=== PATIENT | male | born 1950 | race Caucasian/White ===

== ENCOUNTER 2023-12-22 01:39 | Emergency (ER) | payer OTHER ==
[2023-12-22 01:50] VITALS: BP 178/100
[2023-12-22] MEDS ORDERED: SODIUM CHLORIDE 0.9% 1,000 ML IV STA (01:57)
[2023-12-22] MEDS ORDERED: MORPHINE SULFATE 4 MG/ML VIAL IV STA (01:57)
[2023-12-22] MEDS ORDERED: Pantoprazole Sodium 40 MG VIAL (Protonix) IV STA (01:57)
[2023-12-22] MEDS ORDERED: PROCHLORPERAZINE EDISYLATE 10 MG/2 ML SDV IV ONE (02:00)
[2023-12-22] MEDS ORDERED: LIDOCAINE VISCOUS 2% 15 ML UDC PO ONE (02:00)
[2023-12-22 02:23] VITALS: BP 169/101
[2023-12-22 02:26] LABS: BASO% 0.2 % (0-3); EOS% 0.2 % (0-8); HEMOGLOBIN 13.6 g/dl (14.0-18.0); IMMATURE GRANULOCYTES 0.1 % (0.0-5.0); LYMPH% 4.3 % (15-41); MEAN CELL VOLUME 87.4 fL CALC (80.0-100.0); MEAN CORPUSCULAR HGB 27.6 pG CALC (26.0-32.0); MEAN CORPUSCULAR HGB CONC 31.6 g/dL CAL (32.0-36.0); MONO% 3.1 % (2-13); NEUT# 11.49 thou/uL (1.82-7.42); NEUT% 92.1 % (42-76); RED BLOOD COUNT 4.92 mill/uL (4.70-6.10); RED CELL DISTRI WIDTH 13.7 % (11.5-15.5)
[2023-12-22 02:35] LABS: URINE BILIRUBIN - DIPSTICK Negative (NEGATIVE); URINE BLOOD DIPSTICK Negative (NEGATIVE); URINE COLOR Yellow; URINE GLUCOSE - DIPSTICK Negative (NEGATIVE); URINE KETONE 15 mg/dL (NEGATIVE); URINE LEUK ESTERASE Negative (NEGATIVE); URINE NITRITE - DIPSTICK Negative (Negative); URINE PROTEIN - DIPSTICK Negative (NEG-TRACE); URINE UROBILINOGEN - DIPSTICK 0.2 E.U./dL (0.2)
[2023-12-22 02:36] LABS: ALBUMIN 4.6 g/dL (3.2-5.0); ALKALINE PHOSPHATASE 148 u/l (38-126); ANION GAP 13 (6-22 (CALC)); BILIRUBIN, TOTAL 0.6 mg/dL (0.2-1.3); BUN 17 mg/dL (8-23); BUN/CREATININE RATIO 19 (12-20 (CALC)); CARBON DIOXIDE 24 mmol/l (22-30); CHLORIDE 106 mmol/l (95-108); CREATININE 0.9 mg/dL (0.7-1.3); GFR FOR AFR.AMER. > 60 ML/MIN (>=60 (CALC)); GFR OTHER RACES > 60 ML/MIN (>=60 (CALC)); LIPASE 57 u/l (23-300); POTASSIUM 3.7 mmol/l (3.5-5.1); SGOT/AST 29 u/l (19-48); SODIUM 139 mmol/l (137-146); TOTAL PROTEIN 7.5 g/dL (6.3-8.2)
[2023-12-22 02:45] VITALS: BP 142/89
[2023-12-22 03:00] VITALS: BP 146/89
[2023-12-22] MEDS ORDERED: PROMETHAZINE HY25 M1 PO (05:20)
[2023-12-22] MEDS ORDERED: PROMETHAZINE HCL 25 MG/TAB PO ONE (05:20)
== END 2023-12-22 06:23 | disposition home or self-care (01) | DRG 392 ==
LOC: ED 01:39
PROVIDERS: Family Medicine
DX: K52.9 Noninfective gastroenteritis and colitis, unspecified (principal); I10 Essential (primary) hypertension
CPT/HCPCS: Q9967; S0164